=== PATIENT | female | born 2000 | race Two or more races ===

== ENCOUNTER 2022-01-20 05:50 | Emergency (ER) | payer OTHER ==
[~2022-01-20] VITALS: Ht 157.5 cm; Wt 72.7 kg
[2022-01-20 05:59] VITALS: BP 133/84
[2022-01-20] MEDS ORDERED: KETOROLAC TROMETH 30 MG/ML 1ML VIAL IV ONE (07:00)
[2022-01-20] MEDS ORDERED: IBUP800T27 PO (08:18)
[2022-01-20] MEDS ORDERED: METH750T22 PO (08:18)
== END 2022-01-20 08:29 | disposition home or self-care (01) ==
LOC: EDBD 05:50 → ER 05:50
DX: S70.11XA Contusion of right thigh, initial encounter (principal); S10.93XA Contusion of unspecified part of neck, initial encounter; R51.9 Headache, unspecified; V43.52XA Car driver injured in collision with other type car in traffic accident, initial encounter; Y93.89 Activity, other specified; Y92.89 Other specified places as the place of occurrence of the external cause; Y99.8 Other external cause status
CPT/HCPCS: 70450; 71250; 72125; 74176; 96374; 99284; J1885

== ENCOUNTER 2022-02-21 08:12 | Emergency (ER) | payer OTHER ==
[~2022-02-21] VITALS: Ht 160 cm; Wt 80.9 kg
[~2022-02-21 08:12] MED LIST: IBUP800T27 PO; METH750T22 PO
[2022-02-21 13:21] VITALS: BP 137/75
[2022-02-21] MEDS ORDERED: BACL20TA PO (13:35)
[2022-02-21] MEDS ORDERED: METH4PAK PO (13:35)
== END 2022-02-21 13:46 | disposition home or self-care (01) ==
LOC: ER 08:12
DX: S20.219A Contusion of unspecified front wall of thorax, initial encounter (principal); M94.0 Chondrocostal junction syndrome [Tietze]; F17.210 Nicotine dependence, cigarettes, uncomplicated; Z79.1 Long term (current) use of non-steroidal anti-inflammatories (NSAID); Z79.899 Other long term (current) drug therapy; X58.XXXA Exposure to other specified factors, initial encounter; Y93.89 Activity, other specified; Y92.89 Other specified places as the place of occurrence of the external cause; Y99.8 Other external cause status
CPT/HCPCS: 93005